=== PATIENT | female | born 1950 | race Caucasian/White ===

== ENCOUNTER → 2023-05-20 10:43 | Outpatient (REF) | payer BC, SELFPAY | LOC: HWRAD 10:43 | PROVIDERS: ATTENDING PHYSICIAN Nurse Practitioner Family; FAMILY PHYSICIAN Family Medicine | DX: R10.2 Pelvic and perineal pain (principal) | CPT/HCPCS: 76830; 76856 ==

== ENCOUNTER → 2023-05-27 13:05 | Outpatient (REF) | payer BC, SELFPAY ==
[2023-05-28 14:27] LABS: Rheumatoid Agglutinin Less Than 10 IU (<10 IU)
[2023-05-30 03:24] LABS: ANA, IgG Reflex to HEp-2 None Detected (None Detected)
== END ==
LOC: HWLAB 13:05
PROVIDERS: ATTENDING PHYSICIAN Nurse Practitioner Family; FAMILY PHYSICIAN Family Medicine
DX: M25.59 Pain in other specified joint (principal)
CPT/HCPCS: 36415; 86038; 86430

== ENCOUNTER → 2024-01-06 12:42 | Outpatient (REF) | payer BC, SELFPAY ==
[2024-01-06 16:25] LABS: ALT (SGPT) 22 U/L (0-35); AST (SGOT) 27 U/L (14-36); Albumin 4.5 g/dl (3.5-5.0); Alkaline Phosphatase 72 U/L (38-126); Blood Urea Nitrogen 15 mg/dl (7-17); Calcium 9.3 mg/dl (8.4-10.2); Carbon Dioxide 25 mmol/L (22-30); Chloride 100 mmol/L (98-107); Glucose 104 mg/dl (70-99); HDL Cholesterol 101 mg/dl; LDL Cholesterol, Calculated 137 mg/dl; Potassium 4.8 mmol/L (3.5-5.1); Sodium 138 mmol/L (135-145); Total Bilirubin 1.3 mg/dl (0.2-1.3); Total Cholesterol 253 mg/dl (50-199); Total Protein 7.2 g/dl (6.3-8.2); Triglyceride 75 mg/dl (10-149); Very Low Density Lipoprotein 15 mg/dl (0-30); eGFR > 60.00
== END ==
LOC: HWLAB 12:42
PROVIDERS: ATTENDING PHYSICIAN Internal Medicine Cardiovascular Disease; FAMILY PHYSICIAN Family Medicine
DX: E78.2 Mixed hyperlipidemia (principal); I10 Essential (primary) hypertension
CPT/HCPCS: 36415; 80053; 80061

== ENCOUNTER 2024-06-22 10:39 | Emergency (ER) | payer BC, SELFPAY ==
[2024-06-22 10:41] VITALS: BP 170/110
--- NOTE | 2024-06-22 11:58 | ED.GENMED ---
History of Present Illness
General
Chief Complaint: DVT/Possible Blood Clot
Source: patient
Time Seen by Provider: 06/22/24 10:59
History of Present Illness
History of Present Illness:
73-year-old female with no significant past medical history presenting to the emergency department for evaluation of nontraumatic left foot/ankle pain that started yesterday, last night that she had moderate erythema and edema to the anterior
portion of the ankle, concern for DVT which is what prompted her to come to the ER today. Patient denies any history of DVT or risk factors for DVT. States today the pain, edema and erythema seem to have subsided a little bit but still notes some
tenderness to the anterior part of the lower leg. Social history is noted for former smoker nothing recent.
Past History
Past History
ED Past Medical History: Other (peritonitis); Negative Asthma, HTN, Hypercholesterolemia or NIDDM
ED Past Surgical History: Appendectomy
Social History
Tobacco: Former smoker
Alcohol: None
Drug: None
Personal:
Living: with family
Employment: Employed
Family History
Family History: Other (No significant)
Review of Systems
Review of Systems
All Other Systems: ROS reviewed and negative except as documented in HPI and ROS
Phy Exam
Physical Exam
Physical Exam:
GENERAL: Alert , in no apparent distress, Somewhat overweight
EYE: conjunctiva clear
Head: Normocephalic atraumatic
NECK: Supple,
ENT: mmm.
LUNGS: no acute respiratory distress
NEUROLOGICAL: Alert and oriented
SKIN: Warm and dry, there is some very mild erythema overlying the anterior ankle with tenderness but minimal increased warmth
MUSCULOSKELETAL: varicose veins/spider veins noted to bilateral lower extremities. There does appear to be some mild edema to the left lower extremity when compared to the right. Patient does allow for range of motion of the foot and ankle however
does have increased discomfort with dorsiflexion. Easily will pedal and tibial pulses bilateral. Cap refill less than 2 seconds. Sensation grossly intact to light touch.
PSYCH: Normal and appropriate interaction.
Scores
Heart Failure Risk
Heart Failure Risk Score: Not Applicable
Heart Score for Chest Pain Patients
STEMI patient?: Not applicable
Withdrawal Assessment of Alcohol
Withdrawal Assessment Completed?: Not applicable
Course
Orders/Labs/Results
Orders:
Orders
06/22/24 10:45
US Periph Venous LOWER Ext LT Urgent
Comment:
Reason For Exam: pain, swelling
Vital Signs
Initial and Last Documented VS:
Initial Vital Signs
Temp Pulse Resp BP Pulse Ox
98.2 F 104 16 170/110 96
06/22/24 10:41 06/22/24 10:41 06/22/24 10:41 06/22/24 10:41 06/22/24 10:41
Last Documented Vital Signs
Temp Pulse Resp BP Pulse Ox
98.2 F 104 16 170/110 96
06/22/24 10:41 06/22/24 10:41 06/22/24 10:41 06/22/24 10:41 06/22/24 10:41
MDM/Problems Addressed
Differential Diagnosis Includes:
Osteoarthritis, cellulitis, given the location of symptoms I have much less suspicion for DVT, no trauma to suspect fracture, varicose veins
MDM/Problems Addressed:
73-year-old female presenting to the ER for atraumatic left ankle pain and erythema/edema that she noticed last night, somewhat improved today however still with some slight discomfort. Less concern for DVT however this was patient's presenting
concerns and will obtain ultrasound. Question cellulitis versus arthritic changes. Doubt septic joint given patient is afebrile, still able to range of motion the joint. Anticipate discharge home and outpatient follow-up.
*Radiology
Radiology exam reviewed: radiology read reviewed
*Pulse Oximetry
Patient hypoxic: no
*Critical Care Note
Total Time (30-74mins, 75-104mins- exclusive of procedures): Not Applicable
Patient Management
Escalation/DeEscalation of care consider admission/obs:
Patient's ultrasound is negative for DVT. We discussed possibility of starting antibiotics for possible early cellulitis however given patient's numerous antibiotic sensitivities and allergies we decided to hold off on antibiotic at this time
especially given patient's reported significant improvement in less than 12 hours. Patient aware of return precautions to the ER. She already has prearranged follow-up with primary care provider for next Thursday. Stable for discharge home.
ED Attending Note
-
Portions of this chart may have been created with voice recognition software.� Occasional wrong word or��sound alike� substitutions may have occurred due to the inherent limitations of voice recognition software.
Discharge Plan
Departure
Patient Disposition: Home (Routine Discharge)
Date of Disposition: 06/22/24
Time of Disposition: 13:19
Patient with high blood pressure during this ER visit?: Yes
Discharge Problem:
Pain in left lower leg
Prescriptions:
No Action
tobramycin 0.3 % drops
1 drp ophthalmic (eye) Q2H Qty: 5 0RF
Referrals:
Gabriela Gr, [Family Provider] -
Interventions
Interventions:
*Risk Screen - Suicide Last Done: 06/22/24 10:41
*General Assessment Last Done: 06/22/24 10:41
*Neglect/Abuse Screening Last Done: 06/22/24 11:51
*ED- Fall Risk Assessment Last Done: 06/22/24 11:51
*ED COVID-19 Vaccine History Last Done: 06/22/24 10:41
*Nursing Disposition Last Done: 06/22/24 13:27
ED- Cardiac Assessment Last Done: 06/22/24 11:51
ED- Pulmonary Assessment Last Done: 06/22/24 11:51
ED-Skin Assessment Last Done: 06/22/24 11:51
Discharge Date and Time
Discharge Date/Time: 06/22/24 13:32
Print Language: GAMBIAN
== END 2024-06-22 13:32 | disposition home or self-care (01) ==
LOC: EMR 10:39
PROVIDERS: EMERGENCY PHYSICIAN Emergency Medicine; FAMILY PHYSICIAN Family Medicine
DX: M79.662 Pain in left lower leg (principal); Z87.891 Personal history of nicotine dependence; I83.93 Asymptomatic varicose veins of bilateral lower extremities
CPT/HCPCS: 99284; 93971

== ENCOUNTER → 2024-07-12 13:31 | Outpatient (REF) | payer BC, SELFPAY ==
[2024-07-12 16:15] LABS: % Basophils 0.3 % (0-2); % Eosinophils 0.6 % (0-6); % Immature Granulocytes 0.3 % (0-0.5); % Lymphocytes 31.2 % (20.5-51.1); % Monocytes 6.5 % (1.7-9.3); % Neutrophils 61.1 % (42.2-75.2); Absolute Monocytes 0.4 10^3/uL (0.1-0.6); Absolute Neutrophils 3.9 10^3/uL (1.4-6.5); Hematocrit 36.2 % (37.0-47.0); Hemoglobin 13.2 g/dL (12.0-16.0); Mean Corp Hgb Conc. 36.5 g/dL (33.0-37.0); Mean Corpuscular Hgb 32.7 pg (27.0-31.0); Mean Corpuscular Volume 89.6 fL (81.0-99.0); Mean Platelet Volume 11.3 fL (7.4-10.4); Nucleated Red Blood Cells % 0 %; Platelet Count 205 10^3/uL (130-400); Red Blood Cell Count 4.04 10^6/uL (4.20-5.40); Red Cell Dist. Width 12.8 % (11.5-14.5); White Blood Cell Count 6.3 10^3/uL (4.8-10.8)
[2024-07-12 16:30] LABS: ALT (SGPT) 24 U/L (0-35); AST (SGOT) 29 U/L (14-36); Albumin 4.5 g/dl (3.5-5.0); Alkaline Phosphatase 93 U/L (38-126); Blood Urea Nitrogen 15 mg/dl (7-17); Calcium 9.2 mg/dl (8.4-10.2); Carbon Dioxide 24 mmol/L (22-30); Chloride 103 mmol/L (98-107); Glucose 126 mg/dl (70-99); Potassium 4.7 mmol/L (3.5-5.1); Sodium 138 mmol/L (135-145); Total Bilirubin 0.6 mg/dl (0.2-1.3); Total Protein 7.1 g/dl (6.3-8.2); Uric Acid 3.8 mg/dl (2.5-6.2); eGFR > 60.00
[2024-07-13 10:22] LABS: Glycohemoglobin (HgbA1c) 4.4 % (4.0-5.6)
== END ==
LOC: HWLAB 13:31
PROVIDERS: ATTENDING PHYSICIAN Family Medicine
DX: M25.572 Pain in left ankle and joints of left foot (principal); M79.89 Other specified soft tissue disorders; I10 Essential (primary) hypertension; E78.2 Mixed hyperlipidemia; J45.20 Mild intermittent asthma, uncomplicated; R73.01 Impaired fasting glucose
CPT/HCPCS: 36415; 80053; 83036; 84550; 85025

== ENCOUNTER → 2024-07-20 06:37 | Outpatient (REF) | payer BC, SELFPAY | LOC: RAD 06:37 | PROVIDERS: ATTENDING PHYSICIAN Family Medicine | DX: M79.605 Pain in left leg (principal); I87.2 Venous insufficiency (chronic) (peripheral) | CPT/HCPCS: 93971 ==

== ENCOUNTER → 2024-11-08 13:09 | Outpatient (REF) | payer BC, SELFPAY ==
[2024-11-08 15:48] LABS: C-Reactive Protein < 5.00 mg/L (0.0-10.00)
[2024-11-08 16:05] LABS: Vitamin D, 25-OH*** 30.0 ng/mL (30-80)
[2024-11-08 16:17] LABS: Hepatitis B Surface Antigen Negative (Negative)
[2024-11-08 16:19] LABS: TSH 2.02 uIU/ml (0.47-4.68)
[2024-11-08 16:35] LABS: Hepatitis C Antibody Negative (Negative)
[2024-11-10 11:24] LABS: Rheumatoid Agglutinin Less Than 10 IU (<10 IU)
[2024-11-10 14:16] LABS: Lyme Antibody Screen, EIA Negative (Negative)
[2024-11-11 08:33] LABS: CCP Antibody IgG/IgA 3 Units (0-19)
[2024-11-11 09:14] LABS: ANA, IgG Reflex to HEp-2 None Detected (None Detected)
== END ==
LOC: HWLAB 13:09
PROVIDERS: ATTENDING PHYSICIAN Internal Medicine Rheumatology; FAMILY PHYSICIAN Family Medicine
DX: E55.9 Vitamin D deficiency, unspecified (principal); M13.0 Polyarthritis, unspecified; M54.50 Low back pain, unspecified; Z11.1 Encounter for screening for respiratory tuberculosis; Z11.59 Encounter for screening for other viral diseases
CPT/HCPCS: 36415; 82306; 82550; 84443; 85652; 86038; 86140; 86200; 86430; 86618; 86704; 86706; 86803; 86812; 87340

== ENCOUNTER → 2024-11-09 09:38 | Outpatient (REF) | payer BC, SELFPAY | LOC: HWLAB 09:38 | PROVIDERS: ATTENDING PHYSICIAN Internal Medicine Rheumatology; FAMILY PHYSICIAN Family Medicine | DX: E55.9 Vitamin D deficiency, unspecified (principal); M13.0 Polyarthritis, unspecified; M54.50 Low back pain, unspecified; Z11.1 Encounter for screening for respiratory tuberculosis; Z11.59 Encounter for screening for other viral diseases | CPT/HCPCS: 36415; 86480 ==

== ENCOUNTER → 2024-11-30 11:48 | Outpatient (REF) | payer BC, SELFPAY ==
[2024-11-30 16:36] LABS: Hematocrit 37.4 % (37.0-47.0); Hemoglobin 13.7 g/dL (12.0-16.0); Mean Corp Hgb Conc. 36.6 g/dL (33.0-37.0); Mean Corpuscular Volume 89.7 fL (81.0-99.0); Nucleated Red Blood Cells % 0 %; Platelet Count 198 10^3/uL (130-400); Red Cell Dist. Width 12.8 % (11.5-14.5)
[2024-11-30 17:04] LABS: ALT (SGPT) 20 U/L (0-35); AST (SGOT) 23 U/L (14-36); Albumin 4.5 g/dl (3.5-5.0); Alkaline Phosphatase 74 U/L (38-126); Blood Urea Nitrogen 17 mg/dl (7-17); Calcium 9.3 mg/dl (8.4-10.2); Carbon Dioxide 25 mmol/L (22-30); Chloride 103 mmol/L (98-107); Glucose 104 mg/dl (70-99); HDL Cholesterol 105 mg/dl; LDL Cholesterol, Calculated 133 mg/dl; Potassium 5.1 mmol/L (3.5-5.1); Sodium 134 mmol/L (135-145); Total Protein 7.4 g/dl (6.3-8.2); Very Low Density Lipoprotein 19 mg/dl (0-30); eGFR > 60.00
[2024-12-01 08:57] LABS: Glycohemoglobin (HgbA1c) 4.4 % (4.0-5.6)
== END ==
LOC: HWLAB 11:48
PROVIDERS: ATTENDING PHYSICIAN Family Medicine
DX: I10 Essential (primary) hypertension (principal); E78.2 Mixed hyperlipidemia; J45.20 Mild intermittent asthma, uncomplicated; R73.01 Impaired fasting glucose
CPT/HCPCS: 36415; 80053; 80061; 83036; 85025